=== PATIENT | female | born 1945 | race Caucasian/White ===

== ENCOUNTER → 2017-07-12 | Outpatient (CLI) | payer MEDICARE, OTHER ==
[~2017-07-12] MED LIST: /TIOT18INH; /WARF25TA; /WARF25TA OR; ALBUTEROL; BONIVA; CALCTAB22; COUMADIN; IBUP800T; PERC5TAB8; PERC5TAB8 OR; PERC7.5T8 OR; PRED5TAB OR; SING10TA31 OR; SYMB80AE IN; SYMBICORT; VICO5TAB OR; VIT. E
--- NOTE | 2017-07-12 10:40 | REP ---
CHEST X-RAY: Two views. HISTORY: Centrolobular emphysema. COMPARISON CHEST X-RAY: January 10, 2011. FINDINGS: The lungs are slightly hyperinflated but free of infiltrate. Pleural angles are sharp. Heart is not felt to be enlarged. The aorta is calcific and tortuous. There are degenerative changes in the thoracic spine which are mild. IMPRESSION: Mild hyperinflation. Otherwise no acute disease. Signed by Anibal Fermin MD 07/12/2017 01:18 P
== END ==
LOC: M SMT 09:35
PROVIDERS: ATTEND Internal Medicine Pulmonary Disease
DX: J43.2 Centrilobular emphysema (principal)

== ENCOUNTER → 2019-09-11 | Outpatient (CLI) | payer MEDICARE ==
[~2019-09-11] MED LIST changes: -/TIOT18INH; -/WARF25TA; -/WARF25TA OR; +COUM1TAB18; +COUM1TAB18 OR; +SPIR1CAP
--- NOTE | 2019-09-11 12:17 | REP ---
TRIPLE PHASE BONE SCAN OF KNEES: Following the administration of 22 mCi of technetium 99m MDP, patient's knees are imaged in the flow phase in the anterior and posterior projections showing symmetrical blood flow. Immediate blood pool and 2.5-hour delayed images are performed of the knees in various projections. Photopenic area in the right knee joint is compatible with a total knee prosthesis. Mild increased blood pooling at the interface between the metallic prosthesis and adjacent femur and tibia. There is corresponding mild increased uptake in the distal end of the right femur and proximal end of right tibia adjacent to the prosthesis. No abnormal uptake is seen at the left knee. IMPRESSION: Increased blood pooling and delayed activity in the distal right femur and proximal right tibia adjacent to metallic prosthesis suggesting possible loosening of the prosthesis. Electronically Signed by Uday Neri MD 09/11/2019 12:32 P
== END ==
LOC: M RAD 08:38
PROVIDERS: ATTEND Orthopaedic Surgery
DX: Z96.651 Presence of right artificial knee joint (principal)
CPT/HCPCS: 78315; A9503

== ENCOUNTER → 2022-10-16 | Outpatient (CLI) | payer MEDICARE | LOC: M PLAIMG 11:59 | PROVIDERS: ATTEND Internal Medicine Pulmonary Disease | DX: J43.2 Centrilobular emphysema (principal) ==

== ENCOUNTER → 2024-07-02 | Outpatient (CLI) | payer MEDICARE | LOC: M RAD 13:49 | PROVIDERS: ATTEND Internal Medicine Pulmonary Disease | DX: R06.2 Wheezing (principal); J98.11 Atelectasis; L13.9 Bullous disorder, unspecified; I77.819 Aortic ectasia, unspecified site; I25.119 Atherosclerotic heart disease of native coronary artery with unspecified angina pectoris ==

== ENCOUNTER → 2024-10-09 | Outpatient (REF) | payer MEDICARE ==
[2024-10-09 18:29] LABS: BASO # 0.1 10^3/uL (0.0-0.2); BASO % 0.9 % (0.0-1.0); EOS # 0.2 10^3/uL (0.0-0.5); EOS % 2.6 % (0.0-3.0); HEMATOCRIT 38.8 % (36.0-47.0); HEMOGLOBIN 12.6 g/dl (12.0-15.5); LYMPH # 2.3 10^3/uL (1.5-5.0); LYMPH % 28.5 % (24.0-44.0); MEAN CORPUSCULAR HEMOGLOBIN 29.8 pg (27.0-33.0); MEAN CORPUSCULAR HGB CONC 32.5 g/dl (32.0-36.5); MEAN CORPUSCULAR VOLUME 91.7 fl (80.0-96.0); MONO # 0.9 10^3/uL (0.0-0.8); MONO % 10.9 % (2.0-8.0); NEUTROPHILS # 4.5 10^3/uL (1.5-8.5); NEUTROPHILS % 56.6 % (36.0-66.0); PLATELET COUNT, AUTOMATED 402 10^3/uL (150-450); RED BLOOD COUNT 4.23 10^6/uL (4.00-5.40)
== END ==
LOC: M LAB REF 17:11
PROVIDERS: ATTEND Internal Medicine Pulmonary Disease
DX: R06.2 Wheezing (principal); J43.2 Centrilobular emphysema

== ENCOUNTER → 2024-11-25 | Outpatient (CLI) | payer MEDICARE | LOC: M PLAIMG 12:44 | PROVIDERS: ATTEND Internal Medicine Pulmonary Disease | DX: R06.02 Shortness of breath (principal) ==